=== PATIENT | male | born 1980 | race Caucasian/White ===

== ENCOUNTER 2020-06-26 09:08 | Outpatient (REF) | payer OTHER, SELFPAY ==
[2020-06-26 11:31] LABS: MANUAL DIFF FLAG NO
[2020-06-26 11:42] LABS: Basophils Percent Auto 0.5 % (0-2); Eosinophils Absolute Auto 0.1 X10*3/uL (0.0-0.4); Eosinophils Percent Auto 0.8 % (0-4); Hematocrit 50.7 % (42-52); Hemoglobin 16.7 g/dl (14.0-18.0); Imm Gran Abs Auto 0.01 X10*3/uL (0.00-0.03); Imm Gran Pct Auto 0.2 % (0.0-0.4); Lymphocytes Absolute Auto 1.9 X10*3/uL (1.2-4.9); Lymphocytes Percent Auto 30.2 % (20-40); Mean Corpuscular HGB Conc 32.9 g/dl (31.0-36.0); Mean Corpuscular Hemoglobin 29.4 pg (27.0-33.0); Mean Corpuscular Volume 89.3 fL (80-98); Mean Platelet Volume 10.3 fL (9.4-12.4); Monocytes Absolute Auto 0.4 X10*3/uL (0.1-1.2); Monocytes Percent Auto 6.3 % (2-11); Neutrophils Absolute Auto 3.9 X10*3/uL (2.0-8.3); Platelet Count 254 X10*3/uL (160-400); Red Blood Count 5.68 X10*6/uL (4.60-5.80); Red Cell Distribution Width 13.2 % (11.0-16.0); White Blood Count 6.2 X10*3/uL (4.8-10.8)
[2020-06-26 12:08] LABS: Anion Gap 13 (12-20); Blood Urea Nitrogen 13 mg/dL (9-16); Calcium 8.9 mg/dL (8.4-10.2); Carbon Dioxide 26 mmol/L (22-29); Chloride 105 mmol/L (96-108); Estimated Glomerular Filt Rate > 60; Glucose Random 81 mg/dL (60-115); Potassium 4.3 mmol/l (3.3-5.1); Sodium 140 mmol/L (135-145)
[2020-06-28 03:12] LABS: LDL Cholesterol Direct 153 mg/dL (<100)
== END 2020-06-26 09:09 | disposition home or self-care (01) ==
LOC: HO.HMGCLDS 09:08
PROVIDERS: Visit Provider Internal Medicine
DX: R22.1 Localized swelling, mass and lump, neck (principal); Z00.01 Encounter for general adult medical examination with abnormal findings
CPT/HCPCS: 36415; 80048; 83721; 85025

== ENCOUNTER → 2020-07-13 09:19 | Outpatient (BNVA) | payer OTHER, SELFPAY | PROVIDERS: PCP Nurse Practitioner Family; Visit Provider Surgery | DX: Z76.89 Persons encountering health services in other specified circumstances (principal) ==

== ENCOUNTER 2020-07-27 11:24 | Outpatient (REF) | payer OTHER, SELFPAY ==
--- NOTE | 2020-07-27 11:24 | XR_ITS ---
EXAMINATION: AP PELVIS AND 2 VIEWS OF THE LEFT HIP CLINICAL INFORMATION: Pain COMPARISON: None TECHNIQUE: AP pelvis and 2 views of the left hip. FINDINGS: AP film of the pelvis does not demonstrate any evidence of acute fracture or dislocation. There is partial sacralization right side of L5. Hip joint spaces are maintained bilaterally.There is increased density of the sacroiliac joints bilaterally consistent with osteitis condensans ilii. 2 views of the left hip left hip joint spaces maintained. No significant degenerative changes seen. No destructive bony lesions. No evidence of femoral head collapse. XR/XR hip LT min 2V IMPRESSION: No significant bony abnormality of the left hip identified. osteitis condensans ilii Sacralization right side of L5.
--- NOTE | 2020-07-27 11:24 | XR_ITS ---
EXAMINATION: AP PELVIS AND 2 VIEWS OF THE LEFT HIP CLINICAL INFORMATION: Pain COMPARISON: None TECHNIQUE: AP pelvis and 2 views of the left hip. FINDINGS: AP film of the pelvis does not demonstrate any evidence of acute fracture or dislocation. There is partial sacralization right side of L5. Hip joint spaces are maintained bilaterally.There is increased density of the sacroiliac joints bilaterally consistent with osteitis condensans ilii. 2 views of the left hip left hip joint spaces maintained. No significant degenerative changes seen. No destructive bony lesions. No evidence of femoral head collapse. XR/XR pelvis 1-2V IMPRESSION: No significant bony abnormality of the left hip identified. osteitis condensans ilii Sacralization right side of L5.
== END 2020-07-27 11:25 | disposition home or self-care (01) ==
LOC: HO.HOSX 11:24
PROVIDERS: Visit Provider Physician Assistant
DX: M70.62 Trochanteric bursitis, left hip (principal)
CPT/HCPCS: 20551; 20610; 72170; 73502; J1040

== ENCOUNTER 2021-01-15 09:22 | Outpatient (REF) | payer OTHER, SELFPAY ==
--- NOTE | ~2021-01-15 | CT_ITS ---
EXAMINATION: CT ABDOMEN AND PELVIS WITH CONTRAST CLINICAL INFORMATION: Abdominal pain. COMPARISON: None TECHNIQUE: Multidetector volumetric images were obtained from the superior aspect of the liver through the pubic symphysis following administration 85 mL of Omnipaque 350 intravenous contrast. Sagittal and coronal reformatted images were obtained on the technologist's workstation. Oral contrast: No This CT examination was performed using dose optimization techniques as appropriate, variously including the following: *Automated exposure control *Adjustment of mA and/or kV according to patient size (this includes techniques or standardized protocols for targeted exams where dose is matched to indication/reason for exam; i.e. extremities or head) *Use of iterative reconstruction technique DLP: 422 mGy-cm FINDINGS: LUNG BASES: The visualized lung bases are unremarkable. LIVER, GALLBLADDER, AND BILIARY TREE: The liver is normal in size, shape, and attenuation. No focal hepatic lesion or biliary ductal dilatation is present. The gallbladder is unremarkable with no evidence of radiopaque gallstones, gallbladder wall thickening, or obvious pericholecystic inflammatory changes. PANCREAS: Unremarkable. SPLEEN: Unremarkable. ADRENAL GLANDS: Unremarkable. KIDNEYS AND URETERS: The kidneys are normal in size, shape, and attenuation. No hydronephrosis, hydroureter, or calculi seen. No perinephric stranding. BLADDER: Unremarkable. GASTROINTESTINAL TRACT: There is scattered sigmoid and descending colon diverticulosis with mild mural thickening distal descending colon with pericolic fat stranding and paracolic focal extraluminal air collection contained with artificial thickening consistent with acute diverticulitis. There is no drainable abscess of proximal bowel obstruction. No free air seen. There is moderate stool in the colon. The small bowel loops are normal. Appendix is normal caliber. ABDOMINAL WALL: No significant hernia is appreciated. LYMPH NODES: Normal. VASCULAR: Unremarkable. PELVIC VISCERA: Unremarkable. OSSEOUS STRUCTURES: There is mild ventral spondylosis L3-L4 disc level. No lytic or sclerotic process seen. CT/CT abdomen pelvis w con IMPRESSION: Colonic diverticulosis with descending colon diverticulitis with extraluminal contained air collection but no air-fluid level or abscess seen. No proximal bowel obstruction. Mild constipation.
[2021-01-15 11:25] LABS: MANUAL DIFF FLAG NO
[2021-01-15 11:38] LABS: Basophils Percent Auto 0.2 % (0-2); Eosinophils Percent Auto 0.1 % (0-4); Hematocrit 48.5 % (42-52); Imm Gran Abs Auto 0.04 X10*3/uL (0.00-0.03); Imm Gran Pct Auto 0.4 % (0.0-0.4); Lymphocytes Absolute Auto 1.3 X10*3/uL (1.2-4.9); Lymphocytes Percent Auto 12.9 % (20-40); Mean Corpuscular Volume 87.9 fL (80-98); Mean Platelet Volume 10.1 fL (9.4-12.4); Monocytes Absolute Auto 0.7 X10*3/uL (0.1-1.2); Monocytes Percent Auto 7.4 % (2-11); Neutrophils Absolute Auto 7.8 X10*3/uL (2.0-8.3); Platelet Count 251 X10*3/uL (160-400); Red Blood Count 5.52 X10*6/uL (4.60-5.80); Red Cell Distribution Width 13.6 % (11.0-16.0); White Blood Count 9.9 X10*3/uL (4.8-10.8)
[2021-01-15 11:57] LABS: Alanine Aminotransferase 27 U/L (0-40); Albumin Level 4.3 g/dL (3.5-5.0); Alkaline Phosphatase 71 U/L (39-117); Anion Gap 14 (12-20); Aspartate Amino Transferase 20 U/L (5-37); Bilirubin Total 1.2 mg/dL (0.0-1.0); Blood Urea Nitrogen 14 mg/dL (9-16); Calcium 9.1 mg/dL (8.4-10.2); Carbon Dioxide 26 mmol/L (22-29); Chloride 102 mmol/L (96-108); Estimated Glomerular Filt Rate > 60; Glucose Random 71 mg/dL (60-115); Sodium 138 mmol/L (135-145); Total Protein 6.9 g/dL (6.5-8.0)
== END 2021-01-15 09:23 | disposition home or self-care (01) ==
LOC: HO.CT 09:22
PROVIDERS: Visit Provider Nurse Practitioner Family
DX: R10.9 Unspecified abdominal pain (principal)
CPT/HCPCS: 36415; 74177; 80053; 85025

== ENCOUNTER 2021-04-09 11:17 | Outpatient (REF) | payer OTHER, SELFPAY | END 2021-04-09 11:18 | disposition home or self-care (01) | LOC: HO.LNP 11:17 | PROVIDERS: Visit Provider Internal Medicine | DX: J32.0 Chronic maxillary sinusitis (principal); Z20.822 Contact with and (suspected) exposure to COVID-19 | CPT/HCPCS: U0003; U0005 ==

== ENCOUNTER 2021-05-23 11:11 | Outpatient (REF) | payer OTHER, SELFPAY ==
--- NOTE | ~2021-05-23 | XR_ITS ---
EXAMINATION: XR HAND, LEFT CLINICAL INDICATION: Sprain. COMPARISON: No films to compare. TECHNIQUE: 3 views left hand with a detailed view of the left wrist. FINDINGS: There is no acute bony finding. No fracture or dislocation. Alignment is felt to be within normal limits. Mild prominence of the pronator fat stripe. XR/XR hand wrist LT IMPRESSION: No acute bony finding.
== END 2021-05-23 11:12 | disposition home or self-care (01) ==
LOC: HO.HMGCX 11:11
PROVIDERS: PCP Internal Medicine; Visit Provider Internal Medicine
DX: Z13.89 Encounter for screening for other disorder (principal)
CPT/HCPCS: 73110; 73130

== ENCOUNTER 2021-07-16 08:47 | Outpatient (REF) | payer OTHER, SELFPAY ==
[2021-07-16 11:28] LABS: MANUAL DIFF FLAG NO
[2021-07-16 11:35] LABS: Basophils Percent Auto 0.4 % (0-2); Eosinophils Absolute Auto 0.1 X10*3/uL (0.0-0.4); Eosinophils Percent Auto 1.3 % (0-4); Hemoglobin 16.5 g/dl (14.0-18.0); Imm Gran Abs Auto 0.02 X10*3/uL (0.00-0.03); Imm Gran Pct Auto 0.4 % (0.0-0.4); Lymphocytes Absolute Auto 1.8 X10*3/uL (1.2-4.9); Lymphocytes Percent Auto 33.9 % (20-40); Mean Corpuscular HGB Conc 33.7 g/dl (31.0-36.0); Mean Corpuscular Hemoglobin 29.9 pg (27.0-33.0); Mean Corpuscular Volume 88.8 fL (80.0-98.0); Mean Platelet Volume 10.3 fL (9.4-12.4); Monocytes Absolute Auto 0.4 X10*3/uL (0.1-1.2); Monocytes Percent Auto 7.7 % (2-11); Neutrophils Percent Auto 56.3 % (45-73); Platelet Count 241 X10*3/uL (160-400); Red Blood Count 5.52 X10*6/uL (4.60-5.80); Red Cell Distribution Width 13.6 % (11.0-16.0); White Blood Count 5.3 X10*3/uL (4.8-10.8)
[2021-07-16 11:56] LABS: Alanine Aminotransferase 44 U/L (0-40); Albumin Level 4.2 g/dL (3.5-5.0); Alkaline Phosphatase 71 U/L (39-117); Anion Gap 11 (12-20); Aspartate Amino Transferase 37 U/L (5-37); Bilirubin Total 0.3 mg/dL (0.0-1.0); Blood Urea Nitrogen 12 mg/dL (9-16); Calcium 8.8 mg/dL (8.4-10.2); Carbon Dioxide 27 mmol/L (22-29); Chloride 109 mmol/L (96-108); Cholesterol 156 mg/dL; Estimated Glomerular Filt Rate > 60; Glucose Fasting 82 mg/dL (60-99); HDL Cholesterol 21 mg/dL; LDL Cholesterol Calculated 119 mg/dl; Potassium 4.3 mmol/L (3.3-5.1); Sodium 143 mmol/L (135-145); Total Protein 6.4 g/dL (6.5-8.0); Triglycerides 84 mg/dL
== END 2021-07-16 08:48 | disposition home or self-care (01) ==
LOC: HO.HMGCLDS 08:47
PROVIDERS: Visit Provider Internal Medicine
DX: Z00.01 Encounter for general adult medical examination with abnormal findings (principal); E78.5 Hyperlipidemia, unspecified
CPT/HCPCS: 36415; 80053; 80061; 85025

== ENCOUNTER 2021-12-24 12:19 | Outpatient (REF) | payer OTHER, SELFPAY ==
--- NOTE | ~2021-12-24 | XR_ITS ---
EXAMINATION: XR HAND, LEFT CLINICAL INFORMATION: Pain COMPARISON: Previous x-ray April 2021 TECHNIQUE: PA, lateral, and oblique views of the left hand. FINDINGS: The bones and soft tissues are normal. No fracture. Alignment is anatomic. Joint spaces are maintained. No erosions or soft tissue calcifications. XR/XR hand LT 2V IMPRESSION: Normal left hand.
== END 2021-12-24 12:20 | disposition home or self-care (01) ==
LOC: HO.HMGCX 12:19
PROVIDERS: Visit Provider Hospitalist
DX: M79.642 Pain in left hand (principal); Z87.2 Personal history of diseases of the skin and subcutaneous tissue
CPT/HCPCS: 73120

== ENCOUNTER 2022-01-06 13:40 | Outpatient (REF) | payer OTHER, SELFPAY ==
--- NOTE | ~2022-01-06 | US_ITS ---
EXAMINATION: US VENOUS ULTRASOUND WITH DOPPLER LOWER EXTREMITY, LEFT CLINICAL INFORMATION: Confusion COMPARISON: None TECHNIQUE: Ultrasound of the deep veins is performed from the hip to the calf with compression sonography and color and pulse Doppler assessment. Spectral analysis with color-flow imaging is performed. FINDINGS: There is normal venous compression and respiratory variation and augmented flow. The visualized common femoral vein, superficial femoral vein, profunda femoral vein, popliteal vein, and the trifurcation region shows no evidence of deep venous thrombosis. There is no significant popliteal fossa cyst. US/US venous duplex LE LT IMPRESSION: No DVT demonstrated in the left lower extremity.
== END 2022-01-06 13:41 | disposition home or self-care (01) ==
LOC: HO.US 13:40
PROVIDERS: PCP Hospitalist; Visit Provider Hospitalist
DX: M79.662 Pain in left lower leg (principal); S80.12XA Contusion of left lower leg, initial encounter
CPT/HCPCS: 93971

== ENCOUNTER 2022-02-26 15:12 | Outpatient (REF) | payer OTHER, SELFPAY ==
--- NOTE | ~2022-02-26 | XR_ITS ---
EXAMINATION: XR CHEST CLINICAL INFORMATION: R07.81 - Pleurodynia COMPARISON: CT abdomen 01/15/2021 TECHNIQUE: Frontal and 2 lateral views of the chest are obtained for 3 views. FINDINGS: There is no pneumothorax, pleural reaction, airspace consolidation, or effusion. The heart is normal in size. The costophrenic sulci are well-defined. The hilar and mediastinal contours are normal. No acute bony abnormality. There is plate and screws overlying mid to distal left clavicle. No free air beneath the diaphragms. No subcutaneous emphysema. XR/XR chest 2V IMPRESSION: Unremarkable examination.
== END 2022-02-26 15:13 | disposition home or self-care (01) ==
LOC: HO.XRAY 15:12
PROVIDERS: PCP Hospitalist; Visit Provider Emergency Medicine
DX: R07.81 Pleurodynia (principal)
CPT/HCPCS: 71046

== ENCOUNTER 2022-07-01 08:33 | Outpatient (REF) | payer OTHER, SELFPAY ==
[2022-07-01 11:54] LABS: Hematocrit 49.6 % (42.0-52.0); Hemoglobin 16.9 g/dl (14.0-18.0); Mean Corpuscular HGB Conc 34.1 g/dl (31.0-36.0); Mean Corpuscular Hemoglobin 30.6 pg (27.0-33.0); Mean Corpuscular Volume 89.9 fL (80.0-98.0); Mean Platelet Volume 9.9 fL (9.4-12.4); Platelet Count 212 X10*3/uL (160-400); Red Blood Count 5.52 X10*6/uL (4.60-5.80); Red Cell Distribution Width 13.4 % (11.0-16.0); White Blood Count 12.2 X10*3/uL (4.8-10.8)
[2022-07-01 13:07] LABS: Alanine Aminotransferase 40 U/L (0-40); Alkaline Phosphatase 67 U/L (39-117); Anion Gap 13 (12-20); Aspartate Amino Transferase 24 U/L (5-37); Bilirubin Total 0.9 mg/dL (0.0-1.0); Blood Urea Nitrogen 12 mg/dL (9-16); Carbon Dioxide 26 mmol/L (22-29); Chloride 102 mmol/L (96-108); Estimated Glomerular Filt Rate > 60; Glucose Fasting 84 mg/dL (60-99); Potassium 4.2 mmol/L (3.3-5.1); Sodium 137 mmol/L (135-145); TSH reflex Free T4 1.32 uIU/mL (0.32-4.0); Total Protein 6.4 g/dL (6.5-8.0)
== END 2022-07-01 08:34 | disposition home or self-care (01) ==
LOC: HO.WFDLDS 08:33
PROVIDERS: Visit Provider Hospitalist
DX: Z00.00 Encounter for general adult medical examination without abnormal findings (principal)
CPT/HCPCS: 36415; 80053; 84443; 85027

== ENCOUNTER 2023-03-19 12:44 | Outpatient (AMB) | payer OTHER, SELFPAY ==
--- NOTE | 2023-03-19 13:55 | AM.OFFWIN_ITS ---
Intake Vital Signs 03/19/23 13:59 BP 122/82 Blood Pressure Location Rt brachial Position Sitting Pulse 76 Pulse Source Pulse Oximeter Pulse Oximetry (%) 97 Oxygen Delivery Method Room Air Intake Visit Reasons: left wrist injury (martial Arts) Intake Note: Patient here because he hurt his wrist while doing martial arts last . Patient Tobacco Use Status: Never used Tobacco Allergies No Known Allergies Allergy (Verified 03/19/23 14:00) Do you need a note to return to daycare/school/sports/work: No HPI HPI Comments History of Present Illness Details 42-year-old male that presents for wrist pain. Patient was draining in martial arts and wanted do a submission hold and injured his wrist this happened approximately 1 week ago he endorses some swelling which has since gone down. He is complaining of pain with use of the wrist primarily and clicking when bending the wrist in flexion and extension. COUNTS INCLUDE 234 BEDS AT THE [facility] Medical History Closed left clavicular fracture Deviated nasal septum Hip pain Lump in neck Surgical History History of deviated nasal septum History of surgery Family History Father Diabetes mellitus Mother No problems noted. Maternal Grandfather No problems noted. Maternal Grandmother Dementia Paternal Grandfather Diabetes mellitus Paternal Grandmother COPD (chronic obstructive pulmonary disease) Lung cancer Brother No problems noted. Brother No problems noted. Brother No problems noted. Sister No problems noted. Sister No problems noted. Sister No problems noted. Sister No problems noted. Sister No problems noted. Sister No problems noted. Sister No problems noted. Son No problems noted. Son No problems noted. Son No problems noted. 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 No snuffbox tenderness pain with flexion-extension of the wrist Assessment & Plan Assessment & Plan (1) Wrist sprain: Code(s): S63.509A - Unspecified sprain of unspecified wrist, initial encounter Plan 42-year-old male that presents for wrist pain ESS fair exam patient presents alert and oriented no acute distress. Exam is notable for tenderness to palpation on the dorsal aspect midline of the left wrist pain with flexion extension no snuffbox tenderness. Given history considerations sprain versus fracture will evaluate with x-rays. X-rays negative patient has a sprain rest ice elevation. Discharge instructions, follow up and treatment are discussed with patient in my usual fashion. Alternatives in treatment are also discussed. The patient will return for worsening symptoms or as needed. Advised that any labs/imaging ordered will be followed up on and contact made if further treatment needed. Counseled that patient's condition may require further evaluation and/or treatment. Symptoms of concern for worsening disorder discussed in detail in my customary manner. Patient does verbalize understanding of the plan, there are no apparent barriers to communication. The patient is given the opportunity to ask questions and have them answered to his/her satisfaction Orders: Orders XR wrist LT 2V Today M25.539 - Pain in unspecified wrist Patient Instructions: You were seen and evaluated in the walk-in clinic for your wrist pain he received x-rays which were negative. He may utilize rest ice elevation and activity as tolerated. If experiencing new worsening symptoms please be present for re-evaluation. Coding Level of Care Code Est Pt Level 3 (13736) Diagnoses Wrist sprain S63.509A
[2023-03-19 13:59] VITALS: BP 122/82; PULSE 76; O2SAT 97
== END 2023-03-19 14:40 | disposition home or self-care (01) ==
PROVIDERS: PCP Hospitalist; Visit Provider Physician Assistant
DX: S63.509A Unspecified sprain of unspecified wrist, initial encounter (principal)
CPT/HCPCS: 99213

== ENCOUNTER 2023-03-19 14:16 | Outpatient (REF) | payer OTHER, SELFPAY ==
--- NOTE | ~2023-03-19 | XR_ITS ---
EXAMINATION: XR WRIST, LEFT CLINICAL INFORMATION: Left wrist pain. COMPARISON: Left hand radiographs dated 12/24/2021. TECHNIQUE: PA, lateral, and oblique views of the left wrist. FINDINGS: The bones and soft tissues are normal. No fracture. Alignment is anatomic with normal joint spaces. No erosions or abnormal soft tissue calcifications. XR/XR wrist LT 2V IMPRESSION: Unremarkable left wrist.
== END 2023-03-19 14:17 | disposition home or self-care (01) ==
LOC: HO.HMGCX 14:16
PROVIDERS: PCP Hospitalist; Visit Provider Physician Assistant
DX: M25.532 Pain in left wrist (principal)
CPT/HCPCS: 73100

== ENCOUNTER 2023-05-12 14:41 | Outpatient (AMB) | payer OTHER, SELFPAY ==
[2023-05-12 15:44] VITALS: BP 112/78; PULSE 100; O2SAT 98
--- NOTE | 2023-05-12 15:44 | MHC.OFFWIV ---
Intake Vital Signs 05/12/23 15:44 Weight 210 lb BP 112/78 Blood Pressure Location Rt brachial Position Sitting Pulse 100 Pulse Source Pulse Oximeter Pulse Oximetry (%) 98 Oxygen Delivery Method Room Air Intake Visit Reasons: EST/ reaction to medication Intake Note: Patient here because he was taking sodium dicl for a wrist injury and started getting Acid reflux, hiccups, black stools, vomiting and fatigued. Patient Tobacco Use Status: Never used Tobacco Allergies No Known Allergies Allergy (Verified 05/12/23 16:17) Medication List - Last Reconciled 05/12/23 by Govind Alcaraz MD No Known Home Meds Do you need a note to return to daycare/school/sports/work: No HPI EST/ reaction to medication HPI Details 42-year-old male presents to the office for a sick visit. Patient injured his wrist hand has been taking an anti-inflammatory for a month. In the last week he started having abdominal pain, belching and burping. 1 or 2 episodes of black stool. [facility] Medical History Closed left clavicular fracture Deviated nasal septum Hip pain Lump in neck Surgical History History of deviated nasal septum History of surgery Family History Father Diabetes mellitus Mother No problems noted. Maternal Grandfather No problems noted. Maternal Grandmother Dementia Paternal Grandfather Diabetes mellitus Paternal Grandmother COPD (chronic obstructive pulmonary disease) Lung cancer Brother No problems noted. Brother No problems noted. Brother No problems noted. Sister No problems noted. Sister No problems noted. Sister No problems noted. Sister No problems noted. Sister No problems noted. Sister No problems noted. Sister No problems noted. Son No problems noted. Son No problems noted. Son No problems noted. 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 [employer] Cognitive needs: No Hearing needs: No Vision needs: No Physical Exam Vital Signs: Last Vital Signs Pulse 100 05/12/23 15:44 BP 112/78 05/12/23 15:44 Pulse Ox 98 05/12/23 15:44 Oxygen Delivery Method Room Air 05/12/23 15:44 Const General: cooperative and healthy appearing Nutritional Appearance: well nourished Orientation/consciousness: patient oriented x3 Limitations: no limitations HEENT Head: Yes normal to inspection Eyes General: appearance normal, both eyes and all related structures Neck Neck: Yes normal visual inspection Chest Chest palpation & inspection: normal palpation of entire chest wall Resp Effort & Inspection: normal respiratory effort Neuro General: patient oriented x3 Assessment & Plan Assessment & Plan (1) Gastritis: Code(s): K29.70 - Gastritis, unspecified, without bleeding Plan: Stop the NSAIDs immediately. Avoid drinking carbonated fluids. Avoid use of alcohol. Patient was advised to use pantoprazole and Maalox. Should he have more symptoms of bloody diarrhea, I encouraged him to go to the emergency room. Coding Level of Care Code Est Pt Level 4 (83634) Diagnoses Gastritis K29.70
== END 2023-05-12 16:19 | disposition home or self-care (01) ==
PROVIDERS: PCP Hospitalist; Visit Provider Internal Medicine
DX: K29.70 Gastritis, unspecified, without bleeding (principal)
CPT/HCPCS: 99214

== ENCOUNTER 2023-07-31 08:52 | Outpatient (AMB) | payer OTHER, SELFPAY ==
--- NOTE | 2023-07-31 09:05 | A.OFFPC_ITS ---
Vital Signs 07/31/23 09:06 Height 5 ft 9 in Weight 203 lb BMI 30.0 BP 120/70 Blood Pressure Location Lt brachial Position Sitting Pulse 64 Pulse Source Pulse Oximeter Pulse Oximetry (%) 97 Oxygen Delivery Method Room Air Intake Visit Reasons: Transfer of care, CPE, see comments Intake Note: Patient is here for a physical today. Allergies No Known Allergies Allergy (Verified 07/31/23 09:07) Tobacco use date assessed: 07/31/23 Dental Screening Dental Screen Date: 07/31/23 Did you have a dental visit in the last 12 months?: No Did you have a dental problem in the last 6 months where you did not have access to dental care?: No Was dental information given to patient?: Patient declined HPI Transfer of care, CPE, see comments HPI Details Transfer?of?care Prior?PCP:??[facility] Last?office?visit/CPE: ?June?2021 Acute?issue(s): Thigh pain and recurrent injuries PMHx: R abductor tendon repair SurgHx: L wrist repair surgery, R abductor tendon repair FHx: Dad: DM, Obesity SocHx: Nonsmoker. EtOH none. No drugs. [facility] Medical History (Updated 07/31/23 @ 09:33 by Virgil Orellana) Hip pain Lump in neck Deviated nasal septum Closed left clavicular fracture Surgical History (Updated 07/31/23 @ 09:09 by Bessie Epps [facility]) H/O left wrist surgery History of deviated nasal septum History of surgery Family History Father Diabetes mellitus Mother No problems noted. Maternal Grandfather No problems noted. Maternal Grandmother Dementia Paternal Grandfather Diabetes mellitus Paternal Grandmother COPD (chronic obstructive pulmonary disease) Lung cancer Brother No problems noted. Brother No problems noted. Brother No problems noted. Sister No problems noted. Sister No problems noted. Sister No problems noted. Sister No problems noted. Sister No problems noted. Sister No problems noted. Sister No problems noted. Son No problems noted. Son No problems noted. Son No problems noted. 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 [employer] Cognitive needs: No Hearing needs: No Vision needs: No Questionnaire Thrive Questionnaire Date Thrive assessed: 06/28/21 Physical exam (Primary Care) Vital Signs: Last Vital Signs Pulse 64 07/31/23 09:06 BP 120/70 07/31/23 09:06 Pulse Ox 97 07/31/23 09:06 Oxygen Delivery Method Room Air 07/31/23 09:06 BMI result Body Mass Index 30.0 Tobacco/Smoking Status: Tobacco use Status Tobacco use date assessed 07/31/23 07/31/23 09:12 Patient Tobacco Use Status Never used Tobacco 07/31/23 09:12 Thrive Assessment: Date of Thrive Assessment Date Thrive assessed 06/28/21 07/31/23 09:12 Assessment and Plan Assessment & Plan (1) Adult general medical exam: Code(s): Z00.00 - Encounter for general adult medical examination without abnormal findings Plan: 42-year-old?male?presents?as?new?patient?f or?transfer?of?care?and?complete?physical Encouraged?ongoing?healthy?diet?and?active?lifestyle?with?plenty?of?exercise He?will?get?his?labs?drawn?fasting?and?we?can?follow-up?on?these?at?a?subsequen t?telemedicine?encounter (2) Thigh pain: Code(s): M79.659 - Pain in unspecified thigh Plan: Bilateral?thigh?pain?and?likely?recurrent?injuries?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 Can?continue?using?diclofenac?topical?as?needed Orders: Orders Prostate Specific Antigen Scr Today Z12.5 - Encounter for screening for [place] gnant neoplasm of prostate UA and rflx microscopic Today Z00.00 - Encounter for general adult medical examination without abnormal findings Comprehensive Taylor. Panel Fast Today Z00.00 - Encounter for general adult medical examination without abnormal findings Microalbumin, Random (w Creat) Today I10 - Essential (primary) hypertension Lipid Panel Today Z00.00 - Encounter for general adult medical examination without abnormal findings TSH reflex Free T4 Today Z00.00 - Encounter for general adult medical examination without abnormal findings Coding Level of Care Code Est Pt Level 3 (06707) Est Pt Prev Care 40-64y(35045) Diagnoses Adult general medical exam Z00.00 Thigh pain M79.659
[2023-07-31 09:06] VITALS: BP 120/70; PULSE 64; O2SAT 97
== END 2023-07-31 09:44 | disposition home or self-care (01) ==
PROVIDERS: PCP Hospitalist; Visit Provider Family Medicine
DX: Z00.00 Encounter for general adult medical examination without abnormal findings (principal); M79.651 Pain in right thigh; M79.652 Pain in left thigh
CPT/HCPCS: 99396

== ENCOUNTER 2023-09-09 10:54 | Outpatient (REF) | payer OTHER, SELFPAY ==
[2023-09-09 14:33] LABS: Appearance Urine Cloudy; Color Urine Yellow; Glucose Urine UA Negative (Negative); Leukocyte Esterase Urine Negative (Negative); Nitrite Urine Negative (Negative); Urine Blood Negative (Negative); Urine Ketones Negative (Negative); Urine Protein Negative (Neg-Trace)
[2023-09-09 15:00] LABS: Creatinine Urine 153.53 mg/dL; Microalbum/Creatinine Ratio Ur 16.2 ug/mg cr (<30)
[2023-09-09 15:10] LABS: Alanine Aminotransferase 37 U/L (0-40); Albumin Level 4.4 g/dL (3.5-5.0); Alkaline Phosphatase 70 U/L (39-117); Anion Gap 13 (12-20); Aspartate Amino Transferase 29 U/L (5-37); Bilirubin Total 0.6 mg/dL (0.0-1.0); Blood Urea Nitrogen 15 mg/dL (9-16); Calcium 9.7 mg/dL (8.4-10.2); Carbon Dioxide 28 mmol/L (22-29); Chloride 107 mmol/L (96-108); Cholesterol 174 mg/dL (<200); Estimated Glomerular Filt Rate > 60; Glucose Fasting 86 mg/dL (60-99); HDL Cholesterol 27 mg/dL (>40); LDL Cholesterol Calculated 129 mg/dL (<100); Potassium 4.5 mmol/L (3.3-5.1); Sodium 143 mmol/L (135-145); Total Protein 7.3 g/dL (6.5-8.0); Triglycerides 90 mg/dL (<150)
[2023-09-09 15:24] LABS: Prostate Specific Antigen Scr 2.01 ng/mL (<0.05-4.0); TSH reflex Free T4 1.68 uIU/mL (0.32-4.0)
== END 2023-09-09 10:55 | disposition home or self-care (01) ==
LOC: HO.WFDLDS 10:54
PROVIDERS: Visit Provider Family Medicine
DX: Z00.00 Encounter for general adult medical examination without abnormal findings (principal); Z12.5 Encounter for screening for malignant neoplasm of prostate; I10 Essential (primary) hypertension
CPT/HCPCS: 36415; 80053; 80061; 81003; 82043; 82570; 84153; 84443

== ENCOUNTER 2023-09-23 09:57 | Outpatient (AMB) | payer OTHER, SELFPAY ==
--- NOTE | 2023-09-23 09:54 | MHC.PC.OV ---
Intake Visit Reasons: Follow up CPE/LAbs [phone] Intake Note: Patient is following up on labs today. Allergies No Known Allergies Allergy (Verified 09/23/23 09:55) Tobacco use date assessed: 09/23/23 HPI Follow up CPE/LAbs [phone] HPI Details 42 y/o male presents to f/u CPE-labs via telemedicine. Labs were drawn 09/09/23. Reviewed labs with pt. Triglycerides 90. TC 174. LDL 129. HDL low at 27. PFSH Medical History Hip pain Lump in neck Deviated nasal septum Closed left clavicular fracture Surgical History H/O left wrist surgery History of deviated nasal septum History of surgery Family History Father Diabetes mellitus Mother No problems noted. Maternal Grandfather No problems noted. Maternal Grandmother Dementia Paternal Grandfather Diabetes mellitus Paternal Grandmother COPD (chronic obstructive pulmonary disease) Lung cancer Brother No problems noted. Brother No problems noted. Brother No problems noted. Sister No problems noted. Sister No problems noted. Sister No problems noted. Sister No problems noted. Sister No problems noted. Sister No problems noted. Sister No problems noted. Son No problems noted. Son No problems noted. Son No problems noted. 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 [employer] Cognitive needs: No Hearing needs: No Vision needs: No Questionnaire Thrive Questionnaire Date Thrive assessed: 06/28/21 Review of Systems Const Denies chills, Denies fatigue, Denies fever(s), Denies headache(s) and Denies weakness ENT Denies dizziness and Denies headache(s) Card Denies dyspnea Resp Denies cough, Denies dyspnea, Denies wheezing and Denies other (shortness of breath) Musc Denies numbness and Denies tingling Neuro Denies dizziness, Denies headache(s), Denies numbness, Denies tingling and Denies weakness Psych Denies anxiety and Denies depression Endo Denies fatigue Aller/Immun Denies wheezing Physical exam (Primary Care) Tobacco/Smoking Status: Tobacco use Status Tobacco use date assessed 09/23/23 09/23/23 09:56 Patient Tobacco Use Status Never used Tobacco 09/23/23 09:56 Thrive Assessment: Date of Thrive Assessment Date Thrive assessed 06/28/21 09/23/23 09:56 Telehealth Telehealth Location of provider rendering services: practice address Location of patient: other Patient Identification confirmed using: Name, : Yes Telehealth method: voice only Patient verbally consented to treatment: Yes Patient verbally consented to billing insurance company: Yes Minutes spent on Phone/Video with Pt.: 5 Assessment and Plan Assessment & Plan (1) 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 Orders: Orders Lipid Panel 9 Months Z00.00 - Encounter for general adult medical examination without abnormal findings UA and rflx microscopic 9 Months Z00.00 - Encounter for general adult medical examination without abnormal findings Comprehensive Leonard. Panel Fast 9 Months Z00.00 - Encounter for general adult medical examination without abnormal findings Microalbumin, Random (w Creat) 9 Months I10 - Essential (primary) hypertension Prostate Specific Antigen Scr 9 Months Z12.5 - Encounter for screening for malignant neoplasm of prostate TSH reflex Free T4 9 Months Z00.00 - Encounter for general adult medical examination without abnormal findings Coding Level of Care Code Tele Est Pt Level 2 (04449) Diagnoses Low HDL (under 40) E78.6
== END 2023-09-23 10:59 | disposition home or self-care (01) ==
LOC: HO.HMGFM 09:58
PROVIDERS: PCP Family Medicine; Visit Provider Family Medicine
DX: E78.6 Lipoprotein deficiency (principal)
CPT/HCPCS: 99212

== ENCOUNTER 2024-08-02 08:44 | Outpatient (AMB) | payer OTHER, SELFPAY ==
--- NOTE | 2024-08-02 08:58 | A.OFFPC_ITS ---
Vital Signs 08/02/24 09:05 08/02/24 09:07 Height 5 ft 9 in Weight 206 lb 4 oz BMI 30.5 BP 120/90 H 120/80 Blood Pressure Location Rt brachial Rt brachial Position Sitting Sitting Respiration 14 Pulse 78 Pulse Source Pulse Oximeter Pulse Oximetry (%) 97 Oxygen Delivery Method Room Air Intake Visit Reasons: CPE w/ f/u labs & Health Maint Intake Note: CPE Allergies No Known Allergies Allergy (Verified 08/02/24 08:59) Tobacco use date assessed: 08/02/24 Dental Screening Dental Screen Date: 08/02/24 Did you have a dental visit in the last 12 months?: Yes Did you have a dental problem in the last 6 months where you did not have access to dental care?: No Was dental information given to patient?: Patient has dentist HPI CPE w/ f/u labs & Health Maint HPI Details 43 y/o male presents for a CPE with f/u labs and health maintenance. No recent CPE-labs to review. [facility] Medical History (Updated 08/02/24 @ 09:31 by Virgil Orellana) Rupture of right distal biceps tendon Hip pain Lump in neck Deviated nasal septum Closed left clavicular fracture Surgical History H/O left wrist surgery History of deviated nasal septum History of surgery Family History Father Diabetes mellitus Mother No problems noted. Maternal Grandfather No problems noted. Maternal Grandmother Dementia Paternal Grandfather Diabetes mellitus Paternal Grandmother COPD (chronic obstructive pulmonary disease) Lung cancer Brother No problems noted. Brother No problems noted. Brother No problems noted. Sister No problems noted. Sister No problems noted. Sister No problems noted. Sister No problems noted. Sister No problems noted. Sister No problems noted. Sister No problems noted. Son No problems noted. Son No problems noted. Son No problems noted. 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 1. Little interest or pleasure in doing things: not at all 2. Feeling down, depressed, or hopeless: not at all 3. Trouble falling or staying asleep, or sleeping too much: not at all 4. Feeling tired or having little energy: not at all 5. Poor appetite or overeating: not at all 6. Feeling bad about yourself - or that you are a failure or have let yourself or your family down: not at all 7. Trouble concentrating on things, such as reading the newspaper or watching television: not at all 8. Moving or speaking so slowly that other people could have noticed. Or the opposite - being so fidgety or restless that you have been moving around a lot more than usual: not at all 9. Thoughts that you would be better off or of hurting yourself in some way: not at all Total score: 0 Depression Screening Interpretation: Negative Depression Screening Done: Yes 98133 - PHQ-9 Billing: Yes Source: Developed by Drs. Wallace Landry, Khushi Reyes, Jaylan Logan and colleagues, with an educational enid from [employer]. Thrive Questionnaire Date Thrive assessed: 08/02/24 I am a: Patient What is your living situation today?: I have a steady place to live Within the past 12 months, did the food you bought not last and you didn't have the money to get more?: Never true Within the past 12 months, did you worry whether your food would run out before you got money to buy more?: Never true Do you have trouble paying for medicines?: No Do you have trouble getting transportation to medical appointments?: No Do you have trouble paying your heating and electricity bill?: No Do you have trouble taking care of your child, family member or friend?: No Do you have trouble with day-to-day activities such as bathing, preparing meals, shopping, managing finances, etc.?: No Are you currently unemployed and looking for a job?: No Are you interested in more education?: No Please select the resources that you would like help with: None Currently or been in a relationship where the following occur: No concerns reported THRIVE Score: 0 AUDIT C Alcohol Use Questionnaire (AUDIT-C) 1. How often do you have a drink containing alcohol?: Never 3. How often do you have six or more drinks on one occasion?: Never Total Score: 0 LUCILA-7 AMB Questionnaire LUCILA-7 Date LUCILA - 7 assessed: 08/02/24 Feeling nervous, anxious, or on edge: 0 = Not at all Not being able to stop or control worryin = Not at all Worrying too much about different things: 0 = Not at all Trouble relaxin = Not at all Being so restless that it is hard to sit still: 0 = Not at all Becoming easily annoyed or irritable: 0 = Not at all Feeling afraid as if something awful might happen: 0 = Not at all Total LUCILA-7 score (0-4 normal; 5-9 mild; 10-14 moderate; 15-21 severe): 0 Source: Developed by Drs. Wallace Landry, Khushi Reyes, Jaylan Logan and colleagues, with an educational enid from [employer]. LUCILA-7 Assessment Billing LUCILA-7 Assessment Tool: LUCILA-7 Assessment 17909 Review of Systems Const Denies chills, Denies fatigue, Denies fever(s), Denies headache(s) and Denies weakness Eyes Denies change in vision ENT Denies dizziness, Denies headache(s), Denies hearing loss, Denies nasal congestion, Denies sinus pain, Denies sinus pressure and Denies sore throat Card Denies chest pain, Denies lightheadedness, Denies dyspnea and Denies other (palpitations) Resp Denies cough, Denies dyspnea and Denies wheezing GI Denies abdominal pain, Denies melena, Denies hematochezia, Denies change in bowel habits, Denies dyspepsia and Denies nausea Denies hematuria and Denies dysuria Musc Denies abnormal gait, Denies myalgias, Denies arthralgias, Denies numbness and Denies tingling Skin/Breast Denies rash, Denies unusual bruising and Denies wounds Neuro Denies abnormal gait, Denies dizziness, Denies headache(s), Denies memory loss, Denies numbness, Denies Sensory deficit (Neuro), Denies tingling and Denies weakness Psych Denies anxiety, Denies depression and Denies memory loss Endo Denies cold intolerance, Denies fatigue, Denies heat intolerance, Denies polydipsia and Denies polyuria Piotr/Lymph Denies easy bleeding and Denies easy bruising Aller/Immun Denies wheezing Physical exam (Primary Care) Vital Signs: Last Vital Signs Pulse 78 08/02/24 09:05 Resp 14 08/02/24 09:05 BP 120/80 08/02/24 09:07 Pulse Ox 97 08/02/24 09:05 Oxygen Delivery Method Room Air 08/02/24 09:05 BMI result Body Mass Index 30.5 Tobacco/Smoking Status: Tobacco use Status Tobacco use date assessed 08/02/24 08/02/24 09:03 Patient Tobacco Use Status Never used Tobacco 08/02/24 09:03 e-Cigarette/Vaping Use Never Used 08/02/24 09:03 PHQ-9: PHQ-9 Score PHQ-9: Total score 0 08/02/24 09:03 Depression Screening Interpretation: Negative Thrive Assessment: Date of Thrive Assessment Date Thrive assessed 08/02/24 08/02/24 09:03 Currently or been in a relationship where the following occur: No concerns reported Const General: no acute distress, well developed, alert and awake Nutritional Appearance: well nourished Orientation/consciousness: patient oriented x3 HENMT Head: Yes normocephalic and Yes atraumatic Ears: hearing grossly normal bilaterally and TM's normal bilaterally General nose exam: Normal external nose present and Normal nares present Mouth: Normal oral and palatal mucosa present and moist mucous membranes Teeth and gingiva: dentition normal Throat: Yes posterior oropharynx normal Eyes General: appearance normal, both eyes and all related structures Pupils: Equal, round and reactive pupils present and Pupil accommodation reflex normal EOM: EOMs intact bilaterally Neck Neck: Yes normal visual inspection, Yes no lymphadenopathy and Yes trachea midline Thyroid: Thyroid normal Carotids: no bruits Lymphatic: no lymphadenopathy noted Chest Chest palpation & inspection: normal inspection of the chest Resp Effort & Inspection: normal respiratory effort Auscultation: clear to auscultation bilaterally Cardio Rate: regular rate Rhythm: regular rhythm Heart sounds: S1 normal heart sound present, S2 normal heart sound present, no gallops, no murmurs and no rubs Bruits: no abdominal aortic bruits and no carotid bruits GI Palpation (GI): No Abdominal aortic bruit present, Soft to palpation, nontender, No hepatosplenomegaly present and No Rebound tenderness present Auscultation: normal bowel sounds General: Yes no CVA tenderness Back/Spine/Pelvis Back: no CVA tenderness Cervical Spine: cervical ROM normal and No Cervical spine tenderness Thoracic/Lumbar Spine: thoraco-lumbar ROM normal, No pain with thoraco-lumbar ROM, No thoracic spinal tenderness and No lumbar spinal tenderness Skin Lesions: no lesions Rashes: no rashes Trauma: no lacerations or abrasions Wounds: no wounds Nails: normal Neuro General: patient oriented x3 Cranial nerves: Yes Equal, round and reactive pupils present Cognition (Neuro): normal cognition Gait exam (Neuro): Normal gait present Motor exam (neuro): 5/5 motor strength present throughout Sensory Exam: No Sensory deficit (Neuro) Deep tendon reflexes (DTR's): Right patellar reflex intensity grade: 2+ and Left patellar reflex intensity grade: 2+ Extrem General: Yes normal to inspection and No edema Psych Appearance: grossly normal Affect: normal affect Attitude: cooperative Thought process: Normal thought process present Coding Level of Care Code Est Pt Level 3 (30376) Est Pt Prev Care 40-64y(35166) Diagnoses Adult general medical exam Z00.00 Low HDL (under 40) E78.6 Elevated LDL cholesterol level E78.00 Screening for prostate cancer Z12.5 Additional Codes LUCILA-7 Assessment Billing - LUCILA-7 Assessment Tool: LUCILA-7 Assessment 13131 ([id number]) PHQ-9 - 46861 - PHQ-9 Billing: Yes ([id number]) Assessment & Plan Assessment & Plan (1) Adult general medical exam: Code(s): Z00.00 - Encounter for general adult medical examination without abnormal findings Category: Medical Plan: 43-year-old?male?presents?for?complete?physical?exam Exam?within?normal?limits Encouraged?healthy?diet?with?active?lifestyle?and?plenty?of?exercise (2) Low HDL (under 40): Code(s): E78.6 - Lipoprotein deficiency Category: Medical Plan: HDL?with?mildly?low?at?last?check?and?his?LDL?is?a?little?above?goal Has?not?had?this?repeated?since?last?year?but?will?do?so?today We?discussed?weight?loss?and?exercise (3) Elevated LDL cholesterol level: Code(s): E78.00 - Pure hypercholesterolemia, unspecified Category: Medical Plan: As?above (4) Screening for prostate cancer: Code(s): Z12.5 - Encounter for screening for malignant neoplasm of prostate Category: Medical Plan: Check?PSA
[2024-08-02 09:05] VITALS: BP 120/90; PULSE 78; RESP 14; O2SAT 97; BMI 30.5
[2024-08-02 09:07] VITALS: BP 120/80
== END 2024-08-02 11:14 | disposition home or self-care (01) ==
PROVIDERS: PCP Family Medicine; Visit Provider Family Medicine
DX: Z00.00 Encounter for general adult medical examination without abnormal findings (principal); E78.6 Lipoprotein deficiency; E78.00 Pure hypercholesterolemia, unspecified; Z12.5 Encounter for screening for malignant neoplasm of prostate

== ENCOUNTER 2024-08-02 09:41 | Outpatient (REF) | payer OTHER, SELFPAY ==
[2024-08-02 11:53] LABS: Appearance Urine Clear; Color Urine Dark Yellow; Glucose Urine UA Negative (Negative); Leukocyte Esterase Urine Negative (Negative); Nitrite Urine Negative (Negative); PH 6.5 (5.0-9.0); Specific Gravity - Urine >= 1.030 (1.005-1.025); UMIC TRIGGER UA YES; Urine Blood Negative (Negative); Urine Ketones Trace mg/dL (Negative); Urine Protein 30 (1+) mg/dL (Neg-Trace)
[2024-08-02 11:57] LABS: Bacteria Urine None Seen (None Seen); Hyaline Casts Urine 0-2 /LPF (0-2); RBC Urine 0-2 /HPF (0-2); Squamous Epithelial Cell Urine 0-2 /HPF (0-2); WBC Urine 0-5 /HPF (0-5)
[2024-08-02 12:21] LABS: Creatinine Urine 325.51 mg/dL; Microalbum/Creatinine Ratio Ur 15.9 ug/mg cr (<30)
[2024-08-02 12:29] LABS: Prostate Specific Antigen Scr 10.05 ng/mL (<0.05-4.0)
[2024-08-02 12:40] LABS: TSH reflex Free T4 1.18 uIU/mL (0.32-4.0)
[2024-08-02 12:42] LABS: Anion Gap 13 (12-20)
[2024-08-02 12:47] LABS: Alanine Aminotransferase 38 U/L (0-40); Alkaline Phosphatase 64 U/L (39-117); Aspartate Amino Transferase 33 U/L (5-37); Bilirubin Total 0.8 mg/dL (0.0-1.0); Blood Urea Nitrogen 9 mg/dL (9-16); Calcium 8.4 mg/dL (8.4-10.2); Carbon Dioxide 22 mmol/L (22-29); Chloride 107 mmol/L (96-108); Cholesterol 206 mg/dL (<200); Estimated Glomerular Filt Rate > 60; Glucose Fasting 86 mg/dL (60-99); HDL Cholesterol 16 mg/dL (>40); LDL Cholesterol Calculated 172 mg/dL (<100); Potassium 3.8 mmol/L (3.3-5.1); Sodium 138 mmol/L (135-145); Total Protein 6.6 g/dL (6.5-8.0); Triglycerides 91 mg/dL (<150)
== END 2024-08-02 09:42 | disposition home or self-care (01) ==
LOC: HO.WFDLDS 09:41
PROVIDERS: Visit Provider Family Medicine
DX: Z00.00 Encounter for general adult medical examination without abnormal findings (principal); E78.6 Lipoprotein deficiency; E78.00 Pure hypercholesterolemia, unspecified; Z12.5 Encounter for screening for malignant neoplasm of prostate; I10 Essential (primary) hypertension
CPT/HCPCS: 36415; 80053; 80061; 81001; 82043; 82570; 84153; 84443; 96127

== ENCOUNTER 2024-08-23 07:33 | Outpatient (REF) | payer OTHER, SELFPAY ==
[2024-08-23 08:54] LABS: Appearance Urine Clear; Color Urine Yellow; Glucose Urine UA Negative (Negative); Leukocyte Esterase Urine Trace (Negative); Nitrite Urine Negative (Negative); UMIC TRIGGER UA YES; Urine Blood Negative (Negative); Urine Ketones Negative (Negative); Urine Protein 30 (1+) mg/dL (Neg-Trace)
[2024-08-23 09:01] LABS: Bacteria Urine None Seen (None Seen); Hyaline Casts Urine 0-2 /LPF (0-2); RBC Urine 0-2 /HPF (0-2); Squamous Epithelial Cell Urine 0-2 /HPF (0-2); WBC Urine 0-5 /HPF (0-5)
[2024-08-23 09:40] LABS: Prostate Specific Antigen Scr 2.52 ng/mL (<0.05-4.0)
== END 2024-08-23 07:34 | disposition home or self-care (01) ==
LOC: HO.LAB 07:33
PROVIDERS: PCP Family Medicine; Visit Provider Family Medicine
DX: R97.20 Elevated prostate specific antigen [PSA] (principal); Z12.5 Encounter for screening for malignant neoplasm of prostate
CPT/HCPCS: 36415; 81001; 84153

== ENCOUNTER → 2024-08-25 09:39 | Outpatient (AMB) | payer OTHER, SELFPAY ==
--- NOTE | 2024-08-25 09:36 | MHC.PC.OV ---
Intake Visit Reasons: f/u CPE-labs via telemedicine Allergies No Known Allergies Allergy (Verified 08/25/24 09:37) Tobacco use date assessed: 08/02/24 Dental Screening Dental Screen Date: 08/02/24 HPI f/u CPE-labs via telemedicine HPI Details 43 y/o male presents to f/u CPE-labs via telemedicine. Labs drawn 08/02/24. Reviewed labs with pt. Triglycerides 91. TC 206. LDL 172. HDL low at 16. Has not used any cholesterol meds before in the past. PSA 10.05. Repeat PSA 08/23/24 2.52. [facility] Medical History (Updated 08/25/24 @ 10:33 by Virgil Orellana) Rupture of right distal biceps tendon Hip pain Lump in neck Deviated nasal septum Closed left clavicular fracture Surgical History H/O left wrist surgery History of deviated nasal septum History of surgery Family History Father Diabetes mellitus Mother No problems noted. Maternal Grandfather No problems noted. Maternal Grandmother Dementia Paternal Grandfather Diabetes mellitus Paternal Grandmother COPD (chronic obstructive pulmonary disease) Lung cancer Brother No problems noted. Brother No problems noted. Brother No problems noted. Sister No problems noted. Sister No problems noted. Sister No problems noted. Sister No problems noted. Sister No problems noted. Sister No problems noted. Sister No problems noted. Son No problems noted. Son No problems noted. Son No problems noted. 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 Wallace Landry, Khushi Reyes, Jaylan Logan and colleagues, with an educational enid from [employer]. Review of Systems Const Denies chills, Denies fatigue, Denies fever(s), Denies headache(s) and Denies weakness ENT Denies dizziness and Denies headache(s) Card Denies dyspnea Resp Denies cough, Denies dyspnea, Denies wheezing and Denies other (shortness of breath) Musc Denies numbness and Denies tingling Neuro Denies dizziness, Denies headache(s), Denies numbness, Denies tingling and Denies weakness Psych Denies anxiety and Denies depression Endo Denies fatigue Aller/Immun Denies wheezing Physical exam (Primary Care) Tobacco/Smoking Status: Tobacco use Status Tobacco use date assessed 08/02/24 08/25/24 09:37 Patient Tobacco Use Status Never used Tobacco 08/25/24 09:37 e-Cigarette/Vaping Use Never Used 08/25/24 09:37 Thrive Assessment: Date of Thrive Assessment Date Thrive assessed 08/02/24 08/25/24 09:37 Telehealth Telehealth Telehealth Platform: Telephone Location of provider rendering services: practice address Location of patient: address on file Patient Identification confirmed using: Name, : Yes Telehealth method: voice only Patient verbally consented to treatment: Yes Patient verbally consented to billing insurance company: Yes Patient informed of any privacy concerns related to visit: Yes Minutes spent on Phone/Video with Pt.: 20 Coding Level of Care Code Tele Est Pt Level 3 (85152) Diagnoses Elevated LDL cholesterol level E78.00 Low HDL (under 40) E78.6 Elevated PSA R97.20 Shortness of breath R06.02 Assessment & Plan Assessment & Plan (1) Elevated LDL cholesterol level: Code(s): E78.00 - Pure hypercholesterolemia, unspecified Category: Medical Plan: High?LDL?cholesterol?with?low?HDL?cholesterol Start?atorvastatin Will?recheck?in?about?2?months (2) Low HDL (under 40): Code(s): E78.6 - Lipoprotein deficiency Category: Medical Plan: As?above (3) Elevated PSA: Code(s): R97.20 - Elevated prostate specific antigen [PSA] Category: Medical Plan: Patient?thinks?he?had?sexual?activity?the?night?before?he?got?his?blood?drawn Recheck?of?PSA?is?back?in?normal?range?in?about?his?baseline Will?continue?annual?screening (4) Shortness of breath: Code(s): R06.02 - Shortness of breath Category: Medical Plan: Patient?notes?some?shortness?of?breath?with?vigorous?exertion?such?as grappling No?symptoms?with?mild?exertion?and?no?chest?pain?or?diaphoresis We?will?examine?further?at?his?next?visit.??He?can?let?me?know?if?this?is?worsening?or?has?any?new,?concerning?symptoms.
== END ==
LOC: HO.HMCFM 09:39
PROVIDERS: PCP Family Medicine; Visit Provider Family Medicine
DX: E78.00 Pure hypercholesterolemia, unspecified (principal); E78.6 Lipoprotein deficiency; R97.20 Elevated prostate specific antigen [PSA]; R06.02 Shortness of breath

== ENCOUNTER 2024-10-24 12:56 | Outpatient (REF) | payer OTHER, SELFPAY | END 2024-10-24 12:57 | disposition home or self-care (01) | LOC: HO.LAB 12:56 | PROVIDERS: PCP Family Medicine; Visit Provider Family Medicine | DX: Z13.89 Encounter for screening for other disorder (principal) ==

== ENCOUNTER 2024-11-07 12:50 | Outpatient (REF) | payer OTHER, SELFPAY ==
[2024-11-07 17:12] LABS: Alanine Aminotransferase 59 U/L (0-40); Albumin Level 4.5 g/dL (3.5-5.0); Alkaline Phosphatase 75 U/L (39-117); Anion Gap 13 (12-20); Aspartate Amino Transferase 46 U/L (5-37); Bilirubin Total 0.6 mg/dL (0.0-1.0); Blood Urea Nitrogen 12 mg/dL (9-16); Calcium 8.9 mg/dL (8.4-10.2); Carbon Dioxide 24 mmol/L (22-29); Chloride 106 mmol/L (96-108); Cholesterol 139 mg/dL (<200); Estimated Glomerular Filt Rate > 60; Glucose Fasting 73 mg/dL (60-99); HDL Cholesterol 30 mg/dL (>40); LDL Cholesterol Calculated 96 mg/dL (<100); Sodium 139 mmol/L (135-145); Total Protein 7.6 g/dL (6.5-8.0); Triglycerides 65 mg/dL (<150)
[2024-11-07 17:13] LABS: Appearance Urine Clear; Color Urine Yellow; Glucose Urine UA Negative (Negative); Leukocyte Esterase Urine Negative (Negative); Nitrite Urine Negative (Negative); Urine Blood Negative (Negative); Urine Ketones Negative (Negative); Urine Protein Negative (Neg-Trace)
== END 2024-11-07 12:51 | disposition home or self-care (01) ==
LOC: HO.HMGCLDS 12:50
PROVIDERS: PCP Family Medicine; Visit Provider Family Medicine
DX: Z00.00 Encounter for general adult medical examination without abnormal findings (principal); E78.00 Pure hypercholesterolemia, unspecified
CPT/HCPCS: 36415; 80053; 80061; 81003

== ENCOUNTER 2024-11-22 13:54 | Outpatient (AMB) | payer OTHER, SELFPAY ==
--- NOTE | 2024-11-22 13:41 | MHC.PC.OV ---
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 Had?started?him?on?atorvastatin?20?mg?daily. LDL?cholesterol?now?below?100 HDL?was?low?and?has?improved?though?still?below?40 Liver?enzymes?mildly?elevated PFS Medical History (Updated 11/22/24 @ 14:28 by Jose Daniel Bacon MD) Rupture of right distal biceps tendon Hip pain Lump in neck Deviated nasal septum Closed left clavicular fracture Surgical History H/O left wrist surgery History of deviated nasal septum History of surgery Family History Father Diabetes mellitus Mother No problems noted. Maternal Grandfather No problems noted. Maternal Grandmother Dementia Paternal Grandfather Diabetes mellitus Paternal Grandmother COPD (chronic obstructive pulmonary disease) Lung cancer Brother No problems noted. Brother No problems noted. Brother No problems noted. Sister No problems noted. Sister No problems noted. Sister No problems noted. Sister No problems noted. Sister No problems noted. Sister No problems noted. Sister No problems noted. Son No problems noted. Son No problems noted. Son No problems noted. 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 Current occupational exposures/hazards: Yes Cognitive needs: No Hearing needs: No Vision needs: No Questionnaire Thrive Questionnaire Date Thrive assessed: 08/02/24 LUCILA-7 AMB Questionnaire LUCILA-7 Date LUCILA - 7 assessed: 08/02/24 Source: Developed by Drs. Wallace Landry, Khushi Reyes, Jaylan Logan and colleagues, with an educational enid from [employer]. Review of Systems Const Denies chills, Denies fatigue, Denies fever(s), Denies headache(s) and Denies weakness ENT Denies dizziness and Denies headache(s) Card Denies chest pain, Denies lightheadedness, Denies dyspnea and Denies other (Palpitations) Resp Denies cough, Denies dyspnea, Denies wheezing and Denies other ( shortness of breath) Musc Denies numbness and Denies tingling Neuro Denies dizziness, Denies headache(s), Denies numbness, Denies tingling, Denies paresthesias and Denies weakness Psych Denies anxiety and Denies depression Endo Denies fatigue Aller/Immun Denies wheezing Physical exam (Primary Care) Tobacco/Smoking Status: Tobacco use Status Tobacco use date assessed 08/02/24 11/22/24 13:42 Patient Tobacco Use Status Never used Tobacco 11/22/24 13:42 e-Cigarette/Vaping Use Never Used 11/22/24 13:42 Thrive Assessment: Date of Thrive Assessment Date Thrive assessed 08/02/24 11/22/24 13:42 Telehealth Telehealth Telehealth Platform: Telephone Location of provider rendering services: practice address Location of patient: address on file Patient Identification confirmed using: Name, : Yes Telehealth method: voice only Patient verbally consented to treatment: Yes Patient verbally consented to billing insurance company: Yes Patient informed of any privacy concerns related to visit: Yes Minutes spent on Phone/Video with Pt.: 5 Coding Level of Care Code Tele Est Pt Level 2 (37425) Diagnoses Elevated LDL cholesterol level E78.00 Low HDL (under 40) E78.6 Elevated liver enzymes R74.8 Assessment & Plan Assessment & Plan (1) Elevated LDL cholesterol level: Code(s): E78.00 - Pure hypercholesterolemia, unspecified Category: Medical Plan: LDL?cholesterol?much?improved?and?now?at?goal?of?less?than?100 Did?note?mildly?elevated?liver?enzymes?however. Will?decrease?atorvastatin?from?20?mg?to?10?mg?daily Recheck?in?3?months (2) Low HDL (under 40): Code(s): E78.6 - Lipoprotein deficiency Category: Medical Plan: LDL?has?improved?but?is?still?below?40 Encouraged?exercise (3) Elevated liver enzymes: Code(s): R74.8 - Abnormal levels of other serum enzymes Category: Medical Plan: Mildly?elevated?liver?enzymes.??Unclear?cause. As?above,?I?did?decrease?atorvastatin. Also?encouraged?good?hydration?and?weight?loss Orders: Orders Lipid Panel Today E78.00 - Pure hypercholesterolemia, unspecified, Z00.00 - Encounter for general adult medical examination without abnormal findings Comprehensive [place]. Panel Fast Today E78.00 - Pure hypercholesterolemia, unspecified, Z00.00 - Encounter for general adult medical examination without abnormal findings Medications: Changed From atorvastatin 20 mg PO BEDTIME 90 days 90 tabs 1RF To atorvastatin 10 mg (1/2 x 20 mg) PO BEDTIME 90 days 45 tabs 1RF
== END 2024-11-22 17:05 | disposition home or self-care (01) ==
LOC: HO.HMCFM 13:54
PROVIDERS: PCP Family Medicine; Visit Provider Family Medicine
DX: E78.00 Pure hypercholesterolemia, unspecified (principal); E78.6 Lipoprotein deficiency; R74.8 Abnormal levels of other serum enzymes

== ENCOUNTER 2025-02-01 08:23 | Outpatient (AMB) | payer OTHER, SELFPAY ==
[2025-02-01 08:24] VITALS: BP 126/88; PULSE 66; TEMP 36.7; O2SAT 97; BMI 31.8
--- NOTE | 2025-02-01 08:24 | AM.OFFWIN_ITS ---
Intake Vital Signs 02/01/25 08:24 Height 5 ft 9 in Weight 215 lb 2 oz BMI 31.8 BP 126/88 Blood Pressure Location Lt brachial Position Sitting Pulse 66 Pulse Source Pulse Oximeter Temp 98.1 F Temp Source Oral Pulse Oximetry (%) 97 Oxygen Delivery Method Room Air Intake Visit Reasons: EP Ears blocked, blocked duct/cyst in armpit Intake Note: Pt presents to the office today for c/o bilateral ears blocked x2 days and a lump in left armpit x1 week. Patient Tobacco Use Status: Never used Tobacco Allergies No Known Allergies Allergy (Verified 02/01/25 08:24) HPI HPI Comments History of Present Illness Details History of Present Illness - The patient is a 44-year-old male pres enting with symptoms of ear blockage and a large lump in the axilla. ear pain - He has been having a pressure in both of his ears for the past week. He states that he has decrease hearing. - Ear blockage symptoms hinted at involv ement of ear wax buildup after ear popping while blowing the nose; however, no sinus pressure or nasal discharge suggest an infection. - He has no sinus pain or discharge. - He denies congestion, runny nose, sore throat, DODSON, dizziness, or drainage. cyst - Reports developing a painful, enlargin g lump in the left armpit that he suspects could be a clogged duct or ingrown hair, which shows signs of inflammation such as redness and potential fluid buildup. - He states that it hurts to touch - He has no drainage or bleeding - He denies fever, chills, CP, SOB, abd pain, n/v/d. Physical Exam General: Cooperative, healthy appearing, comfortable, no acute distress and well developed ENT: Cerumen noted in the ear canals bilaterally. TMs not visualized bilaterally. Respiratory: Normal respiratory effort and able to speak in complete sentences. Clear to auscultation bilaterally Cardiovascular: Regular rate and rhythm. Normal S1 and S2 Skin: No rashes or lesions noted. Cyst in the left armpit, red and fluctuant and tender. No streaking noted. Procedure- I&D -Area cleaned with alcohol and betadine. 2cc of lidocaine injected into the left axilla. #11 blade used to make a 1cc incision into the abscess. Purulent discharge expressed with some blood. Area irrigated with saline. Wound packed with 1 inch packing. Bandaid applied. Dry sterile bandage applied. Procedure well tolerated. No complications. Patient was informed and verbally consented to the use of an ambient scribe for clinic note documentation during this visit. [facility] Medical History Rupture of right distal biceps tendon Hip pain Lump in neck Deviated nasal septum Closed left clavicular fracture Surgical History H/O left wrist surgery History of deviated nasal septum History of surgery Family History Father Diabetes mellitus Mother No problems noted. Maternal Grandfather No problems noted. Maternal Grandmother Dementia Paternal Grandfather Diabetes mellitus Paternal Grandmother COPD (chronic obstructive pulmonary disease) Lung cancer Brother No problems noted. Brother No problems noted. Brother No problems noted. Sister No problems noted. Sister No problems noted. Sister No problems noted. Sister No problems noted. Sister No problems noted. Sister No problems noted. Sister No problems noted. Son No problems noted. Son No problems noted. Son No problems noted. 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 [employer] Current occupational exposures/hazards: Yes Cognitive needs: No Hearing needs: No Vision needs: No Review of Systems Const All systems reviewed & are unremarkable except as noted in HPI and below Physical Exam Vital Signs: Last Vital Signs Temp 98.1 F 02/01/25 08:24 Pulse 66 02/01/25 08:24 BP 126/88 02/01/25 08:24 Pulse Ox 97 02/01/25 08:24 Oxygen Delivery Method Room Air 02/01/25 08:24 BMI result Body Mass Index 31.8 Office Procedures Cerumen Removal From which ear canal was the cerumen removed: bilateral Removal: irrigation Notes: patient tolerated procedure well, no complications and ear canal clear [id number]-[id number] Irrigation/Lavage I&D Drain 45667-[id number] of Skin Abscess, simple All charges added?: Procedure code (CPT) selection complete I&D Drain [id number] of Skin Abscess, simple All charges added?: Procedure code (CPT) selection complete Office Meds lidocaine 1 %-epinephrine 1:100,000 injection solution Performing Provider: Tami Rico PA-C Performing Location[place] [facility] [place] [facility] Administered by: Tami Rico PA-C on 02/01/25 09:47 Dose Route Admin Location Dispensed Lot Number Expiration Date [facility] Nightman 2 mL subcut 2 mL [id number] 08/23/25 29954-712-66 [employer] Assessment & Plan Assessment & Plan (1) Cerumen impaction: Code(s): H61.20 - Impacted cerumen, unspecified ear Qualifiers: Laterality: bilateral Qualified Code(s): H61.23 - Impacted cerumen, bilateral (2) Sebaceous cyst of left axilla: Code(s): L72.3 - Sebaceous cyst Plan Plan - Plan to address the impacted cerumen by removing the ear wax through irrigation and flushing techniques to clear the blockage. - Debrox drops to the ear to soften the ear wax - Avoid using q-tips - Will also drain the abscess in the left axilla - Packing placed in the axilla - tylenol or motrin as needed for pain. - Bactrim DS BID for 10 days - Follow up with PCP Orders: Orders AMB Cerumen Removal Today H61.23 - Impacted cerumen, bilateral AMB Incision & Drainage Today L72.3 - Sebaceous cyst Medications: New sulfamethoxazole-trimethoprim 800-160 mg (Bactrim DS) 1 tab PO q12h 10 days 20 tabs 0RF lidocaine-epinephrine 1 %-1:100,000 2 mL subcut ONCE 10 mL 0RF L72.3 - Sebaceous cyst Coding Level of Care Code Est Pt Level 4 (33181) Diagnoses Bilateral impacted cerumen H61.23 Laterality: bilateral Sebaceous cyst of left axilla L72.3 CPT Codes Office Procedure - CPT: 61607-Hms Irrigation/Lavage ([id number]) I&D Drain - Drain 1: 67540-Tyvxawbp of Skin Abscess, simple ([id number]) I&D Drain - Drain 1: 89504-Bqbrztkv of Skin Abscess, simple ([id number])
== END 2025-02-01 09:34 | disposition home or self-care (01) ==
PROVIDERS: PCP Family Medicine; Visit Provider Physician Assistant Medical
DX: H61.23 Impacted cerumen, bilateral (principal); L72.3 Sebaceous cyst

== ENCOUNTER → 2025-02-01 08:23 | Outpatient (BNVA) | payer OTHER, SELFPAY | PROVIDERS: PCP Family Medicine; Visit Provider Physician Assistant Medical | DX: L72.3 Sebaceous cyst (principal); H61.23 Impacted cerumen, bilateral | CPT/HCPCS: 10060; 69209; J2004 ==

== ENCOUNTER 2025-07-10 07:59 | Outpatient (AMB) | payer OTHER, SELFPAY ==
[2025-07-10 08:25] VITALS: BP 124/88; PULSE 77; TEMP 36.8; O2SAT 98; BMI 30.1
--- NOTE | 2025-07-10 08:25 | MHC.OFFWIV ---
Intake Vital Signs 07/10/25 08:25 Height 5 ft 9 in Weight 204 lb BMI 30.1 BP 124/88 Blood Pressure Location Rt brachial Position Sitting Pulse 77 Pulse Source Pulse Oximeter Temp 98.2 F Temp Source Oral Pulse Oximetry (%) 98 Oxygen Delivery Method Room Air Intake Visit Reasons: EP-rt butt tuck hole/f/up from urgent care 07/03 Intake Note: Patient presents c/o right inner buttock x10 days. Patient was seen at in [place] (he was away) & was given oral abx & abx injection while there. Patient states it has been draining yellowish/brown pus & it is better now but it has a hole. Patient Tobacco Use Status: Never used Tobacco Allergies No Known Allergies Allergy (Verified 07/10/25 08:31) Do you need a note to return to daycare/school/sports/work: No HPI HPI Comments History of Present Illness Details 44-year-old male presents to the walk-in clinic with complaint of a painful abscess on the left buttock. Symptoms started last week on Thursday with pain and tenderness around the perianal/buttock region. He was evaluated at a local urgent care in [place] and diagnosed with a left buttock abscess. He was treated with Bactrim, Rocephin, and topical mupirocin. Wound culture from that visit grew MRSA. He reports a history of recurrent abscesses, including prior Axillary abscesses requiring I&D. Denies fever, chills, nausea, and vomiting. [facility] Medical History (Updated 07/10/25 @ 09:44 by Annette Aragon NP) Abscess of skin and subcutaneous tissue Rupture of right distal biceps tendon Hip pain Lump in neck Deviated nasal septum Closed left clavicular fracture Surgical History H/O left wrist surgery History of deviated nasal septum History of surgery Family History Father Diabetes mellitus Mother No problems noted. Maternal Grandfather No problems noted. Maternal Grandmother Dementia Paternal Grandfather Diabetes mellitus Paternal Grandmother COPD (chronic obstructive pulmonary disease) Lung cancer Brother No problems noted. Brother No problems noted. Brother No problems noted. Sister No problems noted. Sister No problems noted. Sister No problems noted. Sister No problems noted. Sister No problems noted. Sister No problems noted. Sister No problems noted. Son No problems noted. Son No problems noted. Son No problems noted. 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 [employer] Current occupational exposures/hazards: Yes Cognitive needs: No Hearing needs: No Vision needs: No Review of Systems Const All systems reviewed & are unremarkable except as noted in HPI and below Physical Exam Vital Signs: Last Vital Signs Temp 98.2 F 07/10/25 08:25 Pulse 77 07/10/25 08:25 BP 124/88 07/10/25 08:25 Pulse Ox 98 07/10/25 08:25 Oxygen Delivery Method Room Air 07/10/25 08:25 BMI result Body Mass Index 30.1 Const General: no acute distress Nutritional Appearance: well nourished Orientation/consciousness: patient oriented x3 Resp Effort & Inspection: normal respiratory effort Cardio Rate: regular rate Skin Other: Left buttock with localized erythema, tenderness to palpation, and induration consistent with abscess. No fluctuance noted. No active drainage observed. Surrounding skin warm to touch. Neuro General: patient oriented x3, gait normal and moves all extremities Psych Speech and movement: Normal speech and movement present Assessment & Plan Assessment & Plan (1) Abscess of skin and subcutaneous tissue: Code(s): L02.91 - Cutaneous abscess, unspecified Plan: Left Buttock Abscess ? MRSA positive Currently on antimicrobial therapy (Bactrim PO, IM Rocephin previously, topical mupirocin). History of recurrent abscesses, possible underlying hidradenitis suppurativa vs recurrent MRSA colonization. Continue Bactrim as prescribed (ensure full completion). Continue mupirocin ointment to lesion as directed. Warm compresses to affected area 3?4?/day. Assess need for I&D if worsening pain, increased fluctuance, or failure to improve. Education on local MRSA decolonization strategies (e.g., mupirocin to nares, chlorhexidine washes) if recurrent. Advise patient to monitor for fever, spreading erythema, drainage, or increased pain ? return precautions given. Consider dermatology referral if recurrent abscess pattern persists. Coding Level of Care Code Est Pt Level 4 (00234) Diagnoses Abscess of skin and subcutaneous tissue L02.91 Time Spent (min) 20
== END 2025-07-10 09:30 | disposition home or self-care (01) ==
PROVIDERS: PCP Family Medicine; Visit Provider Nurse Practitioner Family
DX: L02.91 Cutaneous abscess, unspecified (principal)